=== PATIENT | female | born 1980 | race Caucasian/White ===

== ENCOUNTER → 2020-04-27 14:55 | Outpatient (CLI) | payer OTHER, SELFPAY ==
--- NOTE | ~2020-04-27 | MM_ITS ---
EXAMINATION: MM screening fernanda BI w floresita HISTORY: Screening mammogram TECHNIQUE: Craniocaudal and mediolateral oblique 3-D tomosynthesis images were obtained and synthetic 2-D images were generated. CAD analysis was submitted and interpreted. COMPARISON: 05/02/2015 bilateral diagnostic digital mammogram and limited left breast ultrasound exami nation BREAST PARENCHYMAL COMPOSITION: The breasts are heterogeneously dense, which may obscure small masses . FINDINGS: There is no evidence of suspicious mass, calcification, or architectural distortion to sugg est malignancy in either breast. There has been no suspicious interval change. IMPRESSION: 1. No mammographic evidence of malignancy. 2. Recommend routine screening mammography in one year. BI-RADS Category 1: Negative Reviewed, dictated and finalized at location A.
== END ==
PROVIDERS: Visit Provider Obstetrics & Gynecology
DX: Z12.31 Encounter for screening mammogram for malignant neoplasm of breast (principal)
CPT/HCPCS: 77063; 77067

== ENCOUNTER 2021-10-25 14:50 | Outpatient (CLI) | payer OTHER, SELFPAY ==
--- NOTE | ~2021-10-25 | US_ITS ---
EXAMINATION: US abdomen complete DATE: 10/25/2021 14:48 INDICATION: Epigastric abdominal pain. Left abdominal pain. TECHNIQUE: Multiple grayscale and Doppler ultrasound images of the abdomen were obtained. COMPARISON: CT abdomen and pelvis 02/10/2015 FINDINGS: The visualized portions of the head and body of the pancreas are normal. There is a 1.1 cm cyst in the liver. There is normal flow in main portal vein. The gallbladder is normal size. No galls tones or gallbladder wall thickening. There is no sonographic Rushing sign. The common duct is normal and measures 6 mm. The kidneys are normal in size. The spleen is normal in size. Abdominal aorta is n ormal in caliber. The visualized portion of inferior vena cava is normal. IMPRESSION: 1. No etiology for the patient's symptoms. Reviewed, dictated and finalized at location A.
[2021-10-25 15:01] LABS: Basophils Percent Auto 0.4 % (0.2-1.2); Eosinophils Absolute Auto 0.2 K/mm3 (0-0.3); Eosinophils Percent Auto 4.2 % (0-4.4); Hematocrit 33.4 % (37.0-47.0); Hemoglobin 11.1 g/dL (12.0-15.0); Immature Granulocyte Absolute 0.01 K/mm3 (0.00-0.031); Immature Granulocyte Percent A 0.2 % (0-0.5); Lymphocytes Absolute Auto 1.26 K/mm3 (0.9-3.2); Lymphocytes Percent Auto 26.6 % (18.3-44.2); Mean Corpuscular HGB Conc 33.2 g/dl (32-36); Mean Corpuscular Volume 87.2 fl (80-100); Mean Platelet Volume 9.9 fl (7.4-10.4); Monocytes Absolute Auto 0.3 K/mm3 (0.1-0.6); Monocytes Percent Auto 6.1 % (2.6-8.5); Neutrophils Percent Auto 62.5 % (45.5-73.1); Platelet Count Result 224 k/mm3 (150-375); Red Blood Count 3.83 M/mm3 (4.2-5.4); Red Cell Distribution Width 12.5 % (11.5-14.5); White Blood Count 4.7 K/mm3 (4.5-10.0)
[2021-10-25 15:10] LABS: Alanine Aminotransferase 12 U/L (4-35); Albumin Level 4.8 g/dL (3.5-5.1); Alkaline Phosphatase 63 U/L (38-126); Amylase 64 U/L (30-110); Anion Gap 10 mmol/L (8-16); Aspartate Amino Transferase 20 U/L (14-36); Bilirubin,Total 0.7 mg/dL (0.2-1.3); Blood Urea Nitrogen 10 mg/dL (7-17); Calcium 9.3 mg/dL (8.4-10.2); Carbon Dioxide 22 mmol/L (22-30); Chloride 106 mmol/L (98-107); Estimated Glomerular Filt Rate > 60; Glucose 90 mg/dL (65-110); Lipase 65 U/L (23-300); Potassium 3.9 mmol/L (3.4-5.0); Sodium 138 mmol/L (137-145)
== END 2021-10-25 14:51 | disposition home or self-care (01) ==
PROVIDERS: PCP Internal Medicine; Visit Provider Nurse Practitioner
DX: R10.9 Unspecified abdominal pain (principal)
CPT/HCPCS: 36415; 76700; 80053; 82150; 83690; 85025

== ENCOUNTER 2022-01-12 00:24 | Day surgery (SDC) | payer OTHER, SELFPAY ==
[2021-12-25 14:59] VITALS: BMI 29.3
--- NOTE | 2022-01-11 14:09 | P.HP_ITS ---
History of Present Illness History of Present Illness Consent: Risks, benefits, and alternatives have been discussed and questions answered. Patient agrees to proceed with procedure. Chief complaint: epigastric pain Narrative: Patti Avendano is a 41 year old female With epigastric pain for over6 weeks. Pain started suddenly and was severe for 6 days also had nausea and black loose stools for 2 days. Describes pain as a knot in her stomach. She denies any v omiting or fevers. She eventually followed up with her primary doctor. Nexium did not seem to help. She was having intermittent attacks which became more frequent after the holidays. At times they are daily. They can last for 20 or 30 minutes or even several hours. There is no pattern in terms of eating. She has had no weight loss. Blood work and abdominal Ultrasound were done which came back normal. She has hx of reflux disease, mostly diet controlled and takes Nexium or Tums high as needed. She reports indigestion,? Also bubble in chest associated with certain foods. Review of Systems Review of Systems: All systems reviewed & are unremarkable except as noted in HPI and below PMFSH Past Medical History Medical History Anxiety Hemorrhoids Iron deficiency anemia Migraine headache Vitamin D deficiency Surgical History Surgical History History of bilateral tubal ligation Previous section x3 Family History Family History Father Family history of diabetes mellitus in first degree relative, Onset Age: 50 Family history of coronary artery disease, Onset Age: 50 Patient's father is Family history of hypercholesterolemia Myocardial infarction Mother Patient's mother is in good health Social History Social History Smoking status: Never smoker Second hand tobacco smoke exposure: No Alcohol intake: current Drinks per week: 3 Alcohol use details: social Living arrangements: with family Spiritual care concerns: No Meds Home Medications and Allergies Home Medications Medication Instructions Recorded Confirmed Type multivitamin,rd-sxsz-qvyblzja 1 tablet PO DAILY 02/04/20 12/25/21 History (Complete Multivitamin tablet) esomeprazole magnesium 20 mg 20 mg PO TID 11/30/21 12/25/21 History capsule,delayed release (Nexium) cyclobenzaprine 10 mg tablet 10 mg PO BID PRN muscle spasm #20 12/25/21 12/25/21 Rx tabs Allergies Allergy/AdvReac Type Severity Reaction Status Date / Time No Known Allergies Allergy Verified 01/12/22 08:13 Exam Resp: Auscultation: clear to auscultation bilaterally Cardio: Rate: regular rate Rhythm: regular rhythm GI: GI Palp: Yes Soft to palpation and No Tenderness to palpation present (GI) Assessment and Plan Assessment and plan (1) Epigastric pain: Code(s): R10.13 - Epigastric pain Status: Acute Assessment and Plan: EGD with possible biopsy or dilatation or cautery.
[2022-01-12 08:14] VITALS: BP 119/81; PULSE 68; RESP 17; TEMP 36.5; O2SAT 100
[2022-01-12] MEDS: LACTATED RINGERS 1,000 ML 150 ML IV CONT (08:37)
--- NOTE | 2022-01-12 09:23 | P.PNAN_ITS ---
Anes - Initial Pre Proc Eval Procedure: Operation Date: 01/12/22 09:30 Proposed Procedures p Esophagogastroduodenoscopy - Urban Reynolds MD Date/Time: 01/12/22 09:23 Surgeon: Urban Reynolds MD Pre Op Diagnosis: epigastric pain Patient Data Age: 41 Gender: F Height: 1.7 m Weight: 84.5 kg Last Vital Signs Temp 97.7 F 01/12/22 08:14 Pulse 68 01/12/22 08:14 Resp 17 01/12/22 08:14 BP 119/81 01/12/22 08:14 Pulse Ox 100 01/12/22 08:14 O2 Del Method Room Air 01/12/22 08:14 Allergies Allergy/AdvReac Type Severity Reaction Status Date / Time No Known Allergies Allergy Verified 01/12/22 08:13 Home Medications Medication Instructions Recorded Confirmed Type multivitamin,yo-yysh-xkqstmut 1 tablet PO DAILY 02/04/20 12/25/21 History (Complete Multivitamin tablet) esomeprazole magnesium 20 mg 20 mg PO TID 11/30/21 12/25/21 History capsule,delayed release (Nexium) cyclobenzaprine 10 mg tablet 10 mg PO BID PRN muscle spasm #20 12/25/21 12/25/21 Rx tabs Patient hx anesthesia problems: none Family hx anesthesia problems: none Results Review: All pre-operative results and documents have been reviewed as part of the pre- operative evaluation. [facility] Past Medical History Medical History Anxiety Hemorrhoids Iron deficiency anemia Migraine headache Vitamin D deficiency Surgical History Surgical History History of bilateral tubal ligation Previous section x3 Family History Family History Father Family history of diabetes mellitus in first degree relative, Onset Ag e: 50 Family history of coronary artery disease, Onset Age: 50 Patient's father is Family history of hypercholesterolemia Myocardial infarction Mother Patient's mother is in good health Social History Social History Smoking status: Never smoker Second hand tobacco smoke exposure: No Alcohol intake: current Drinks per week: 3 Alcohol use details: social Living arrangements: with family Spiritual care concerns: No Anes - Eval Final PreProcedure Day of Procedure 01/12/22 09:23 Patient weight: normal Heart: regular rate and rhythm Lungs: clear to auscultation Airway: Mallampati scale class II Neurological: alert and oriented Last oral intake: >/= 8 hours ASA classification: II Emergent: no Anesthetic plan: proceed Anesthesia type and monitoring: general GIVS and standard monitoring Results Review: All pre-operative results and documents have been reviewed as part of the pre- operative evaluation. Informed Consent: The patient's anesthetic plan and its attendant risks and benefits were discussed with the patient/family/POA. Questions were solicited and answers provided to the satisfaction of the patient/family/POA.
[2022-01-12 09:36] VITALS: BP 91/52; PULSE 55; RESP 18; O2SAT 100
[2022-01-12 09:46] VITALS: BP 91/52; PULSE 60; RESP 19; O2SAT 100
[2022-01-12 09:56] VITALS: BP 106/61; PULSE 58; RESP 18; O2SAT 100
== END 2022-01-12 10:03 | disposition home or self-care (01) ==
PROVIDERS: PCP Internal Medicine; Visit Provider Internal Medicine Gastroenterology
PROC: 0DJ08ZZ Inspection of Upper Intestinal Tract, Via Natural or Artificial Opening Endoscopic (ICD-10-PCS; CPT 43235; principal; 2022-01-12 09:30)
DX: R10.13 Epigastric pain (principal); K31.7 Polyp of stomach and duodenum; D50.9 Iron deficiency anemia, unspecified; E55.9 Vitamin D deficiency, unspecified
CPT/HCPCS: 43239; 87081; 88305; J2704; J7120

== ENCOUNTER 2022-02-23 11:05 | Outpatient (CLI) | payer OTHER, SELFPAY ==
[2022-02-23 18:57] LABS: Basophils Percent Auto 0.3 % (0.2-1.2); Eosinophils Absolute Auto 0.3 K/mm3 (0-0.3); Eosinophils Percent Auto 4.8 % (0-4.4); Hematocrit 34.7 % (37.0-47.0); Hemoglobin 10.8 g/dL (12.0-15.0); Immature Granulocyte Absolute 0.02 K/mm3 (0.00-0.031); Immature Granulocyte Percent A 0.3 % (0-0.5); Lymphocytes Absolute Auto 1.02 K/mm3 (0.9-3.2); Lymphocytes Percent Auto 17.6 % (18.3-44.2); Mean Corpuscular HGB Conc 31.1 g/dl (32-36); Mean Corpuscular Volume 89.9 fl (80-100); Monocytes Absolute Auto 0.3 K/mm3 (0.1-0.6); Monocytes Percent Auto 4.7 % (2.6-8.5); Neutrophils Absolute Auto 4.2 K/mm3 (1.3-6.7); Neutrophils Percent Auto 72.3 % (45.5-73.1); Platelet Count Result 241 k/mm3 (150-375); Red Blood Count 3.86 M/mm3 (4.2-5.4); Red Cell Distribution Width 14.4 % (11.5-14.5); White Blood Count 5.8 K/mm3 (4.5-10.0)
[2022-02-23 19:27] LABS: Rheumatoid Factor < 8.6 IU/ML (<12)
[2022-02-23 19:37] LABS: Alanine Aminotransferase 12 U/L (6-35); Albumin Level 4.4 g/dL (3.5-5.1); Alkaline Phosphatase 73 U/L (38-126); Anion Gap 8 mmol/L (8-16); Aspartate Amino Transferase 18 U/L (14-36); Bilirubin,Total 0.4 mg/dL (0.2-1.3); Blood Urea Nitrogen 13 mg/dL (7-17); CRP < 0.5 mg/dL (<1.0); Calcium 8.8 mg/dL (8.4-10.2); Carbon Dioxide 24 mmol/L (22-30); Chloride 106 mmol/L (98-107); Cholesterol 215 mg/dL (0-200); Estimated Glomerular Filt Rate > 60; Glucose 88 mg/dL (65-110); HDL Direct 49 mg/dL; Potassium 3.9 mmol/L (3.4-5.0); Sodium 138 mmol/L (137-145); Triglycerides 102 mg/dL (<150)
[2022-02-23 19:47] LABS: LDL Cholesterol Direct 135 mg/dL
[2022-02-23 19:56] LABS: Iron 45 ug/dL (37-170)
[2022-02-23 20:06] LABS: Percent Iron Saturation 11 % (20-50)
[2022-02-23 20:10] LABS: Vitamin D 25 Hydroxy 39.3 ng/mL
[2022-02-23 20:30] LABS: Ferritin 5.68 ng/mL (6.24-137)
== END 2022-02-23 11:06 | disposition home or self-care (01) ==
LOC: ANHGOSHLAB 11:07
PROVIDERS: PCP Internal Medicine; Visit Provider Clinical Nurse Specialist
DX: E55.9 Vitamin D deficiency, unspecified (principal); M25.50 Pain in unspecified joint; D50.9 Iron deficiency anemia, unspecified; Z13.220 Encounter for screening for lipoid disorders; F41.9 Anxiety disorder, unspecified
CPT/HCPCS: 36415; 80053; 80061; 82306; 82728; 83540; 83550; 84443; 85025; 86038; 86140; 86430

== ENCOUNTER 2022-02-24 11:13 | Emergency (ER) | payer OTHER, SELFPAY ==
[2022-02-24 11:20] VITALS: BP 138/92; PULSE 82; RESP 18; TEMP 36.6; O2SAT 100
--- NOTE | 2022-02-24 11:45 | ED.GENADULT ---
HPI - General Adult General Chief complaint: Extremity Injury, Upper Stated complaint: Lt Elbow Swelling and Pain History of Present Illness HPI narrative: Patient is a 41-year-old female who presents to the [facility] care via POV for evaluation of worsening bursitis that began this morning. Patient reports she woke up yesterday with erythema and swelling to left elbow. She saw her PCP yesterday who diagnosed her with bursitis and recommended anti-inflammatories and compression therapy. She was advised by her PCP to have her elbow RE-evaluated if she noticed more erythema, pain, and swelling. Today she believes it is more erythematous prompting today's visit. She states, I am also concerned about it getting worse before I leave for vacation on Saturday . Recommended anti-inflammatories improve pain. Movement worsens pain. Patient reports she believes her pain is better from when she first experienced symptoms. Related Data Home Medications Medication Instructions Recorded Confirmed multivitamin,mf-lshg-[id number] 1 tablet PO DAILY 02/04/20 02/24/22 (Complete Multivitamin tablet) esomeprazole magnesium 20 mg 20 mg PO BID 11/30/21 02/24/22 capsule,delayed release (Nexium) Allergies Allergy/AdvReac Type Severity Reaction Status Date / Time No Known Allergies Allergy Verified 02/24/22 11:22 Review of Systems Review of Systems: Denies injury. Pertinent negatives fever, chills, sweats, malaise, poor p.o. intake, change in appetite, headache, LOC, dizziness, streaking, drainage, numbness, tingling, loss of sensation, foreign body sensation, deformity, sob, chest pain, and heart palpitations/murmurs. [facility] Past Medical History Medical History Anxiety Hemorrhoids Iron deficiency anemia Migraine headache Vitamin D deficiency Surgical History Surgical History History of bilateral tubal ligation Previous section x3 Family History Family History Father Family history of diabetes mellitus in first degree relative, Onset Age: 50 Family history of coronary artery disease, Onset Age: 50 Patient's father is Family history of hypercholesterolemia Myocardial infarction Mother Patient's mother is in good health Social History Social History Smoking status: Never smoker Second hand tobacco smoke exposure: No Alcohol intake: current Drinks per week: 3 Alcohol use details: social Spiritual care concerns: No Exam Narrative: GENERAL: Well-appearing, well-nourished, and in no acute distress. HEAD: Normocephalic, atraumatic. No facial swelling appreciated. EYES: PERRLA and EOMI. No evidence of erythema, swelling, or drainage. ENT: Nares clear, no rhinorrhea or epistaxis.Mucous membranes moist and pink. Uvula is midline without erythema and swelling. No evidence of obstruction, petechial rash, cobblestoning, lesions, ulcers, erythema, swelling, exudates, peritonsillar abscess, tenting, or drooling. Breath odor and voice normal. NECK: Supple. No Lymphadenopathy or nuchal rigidity appreciated. CHEST: Bilateral lung dave are clear to auscultation. No respiratory distress. No evidence of cough or pleuritic cp upon examination. HEART: Regular rate and rhythm. No murmur, gallop, or rub heard. EXTREMITIES: Normal range of motion. MILD ERYTHEMA AND MILD SWELLING NOTED TO L ELBOW WITH MILD PAIN WITH ALL ROM. SKIN: Warm, dry. No evidence of INJURY. MODERATE INDENTATIONS FROM ELBOW BRACE IS APPRECIATED. NEURO: No focal deficits. Alert and oriented x3. SPECIAL OBSERVATIONS: Smiling. Laughing. No evidence of discomfort Course Course Level of Care: Express Care Visit Vital Signs Vital signs: Vital Signs Temperature 97.9 F 02/24/22 11:20 Pulse
== END 2022-02-24 12:04 | disposition home or self-care (01) ==
PROVIDERS: Emergency Provider Nurse Practitioner Family; PCP Internal Medicine
DX: M70.22 Olecranon bursitis, left elbow (principal)
CPT/HCPCS: 99212; G0463

== ENCOUNTER → 2022-03-12 12:08 | Outpatient (CLI) | payer OTHER, SELFPAY ==
--- NOTE | ~2022-03-12 | MM_ITS ---
EXAMINATION: MM screening fernanda BI w floresita HISTORY: Screening TECHNIQUE: Craniocaudal and mediolateral oblique 3-D tomosynthesis images were obtained and synthetic 2-D images were generated. CAD analysis was submitted and interpreted. COMPARISON: Comparison to multiple prior studies sequentially, with oldest reviewed study dated 05/02. BREAST PARENCHYMAL COMPOSITION: There are scattered areas of fibroglandular density. FINDINGS: There is no evidence of suspicious mass, calcification, or architectural distortion to sugg est malignancy in either breast. There has been no suspicious interval change. IMPRESSION: 1. No mammographic evidence of malignancy. 2. Recommend routine screening mammography in one year. BI-RADS Category 1: Negative Reviewed, dictated and finalized at location A.
== END ==
PROVIDERS: PCP Internal Medicine; Visit Provider Obstetrics & Gynecology
DX: Z12.31 Encounter for screening mammogram for malignant neoplasm of breast (principal)
CPT/HCPCS: 77063; 77067

== ENCOUNTER 2022-09-06 08:04 | Emergency (ER) | payer OTHER, SELFPAY ==
--- NOTE | 2022-09-06 08:08 | ED.URI ---
HPI - URI/Sore Throat General Chief Complaint: Upper Respiratory Infection Stated Complaint: sinus congestion/drainage, sore throat,lt ear pain Time Seen by Provider: 09/06/22 08:06 Source: patient and RN notes reviewed Mode of arrival: ambulatory History of Present Illness HPI Narrative: 41-year-old female presents to urgent care with complaints of congestion, sinus pressure, pain that radiates to the left ear, postnasal drip, and head pressure for the last 7-8 days. Patient reports associated pain in the left side of her throat in the mornings attributes this to mouth breathing at night and postnasal drip. Patient denies any fevers, chills, chest pain, shortness of breath, or vomiting. 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 Patient has been taking NyQuil, DayQuil, Mucinex, and eating cough drops frequently with no relief. Related Data Home Medications Medication Instructions Recorded Confirmed multivitamin,vx-dywo-aqzrmmhw 1 tablet PO DAILY 02/04/20 09/06/22 (Complete Multivitamin tablet) Allergies Allergy/AdvReac Type Severity Reaction Status Date / Time No Known Allergies Allergy Verified 09/06/22 08:13 Review of Systems Review of Systems: CONSTITUTIONAL: Denies fever, chills, or sweats. EYES: Denies visual changes, redness, or discharge. ENT: Reports otalgia and sore throat CARDIOVASCULAR: Denies chest pain, palpitations, or edema. RESPIRATORY: Reports slight cough. GASTROINTESTINAL: Denies abdominal pain, nausea, vomiting, or diarrhea. GENITOURINARY: Denies dysuria or hematuria. SKIN: Denies rash or itching. MUSCULOSKELETAL: Reports upper, bilateral, back soreness I contributes this to sleeping well. NEUROLOGIC: Reports headache pressure PMFSH Past Medical History Medical History Anxiety Hemorrhoids Iron deficiency anemia Migraine headache Vitamin D deficiency Surgical History Surgical History History of bilateral tubal ligation Previous section x3 Family History Family History Father Family history of diabetes mellitus in first degree relative, Onset Age: 50 Family history of coronary artery disease, Onset Age: 50 Patient's father is Family history of hypercholesterolemia Myocardial infarction Mother Patient's mother is in good health Social History Social History Smoking status: Never smoker Second hand tobacco smoke exposure: No Alcohol intake: current Drinks per week: 3 Alcohol use details: social Living arrangements: with family Spiritual care concerns: No Comments At the time of my signature, I reviewed and agree with the nursing past medical, surgical, social, and family history. There is no relevant family history pertinent to the patient complaint. Exam Narrative: GENERAL: This is a well-nourished, well-developed patient, in no apparent distress. HEAD: normocephalic, atraumatic. EYES: PERRL. Sclera clear/white. Vision is grossly intact. EARS: External ears normal, auditory canals clear and without drainage, TMs normal without perforation. Hearing grossly intact. NOSE: Congestion THROAT: Mucous membranes dry, posterior pharynx erythema. No exudate noted NECK: Mild anterior cervical lymphadenopathy. CARDIOVASCULAR: Regular rate and rhythm without murmurs, gallops, or rubs. RESPIRATORY: Clear to auscultation. Breath sounds equal bilaterally. No wheezes, rales, or rhonchi. GASTROINTESTINAL: Abdomen soft, non-tender, nondistended. Bowel sounds are active. No hepato-splenomegaly, or palpable masses. No guarding. SKIN: warm, intact with no suspicious lesions or rash, good texture and turgor. NEURO: awak
[2022-09-06 08:15] VITALS: BP 116/88; PULSE 103; RESP 16; TEMP 37.2; O2SAT 100
== END 2022-09-06 08:31 | disposition home or self-care (01) ==
PROVIDERS: Emergency Provider Nurse Practitioner Family; PCP Internal Medicine
DX: J01.00 Acute maxillary sinusitis, unspecified (principal); D50.9 Iron deficiency anemia, unspecified
CPT/HCPCS: 99213; G0463

== ENCOUNTER → 2023-05-22 16:12 | Outpatient (CLI) | payer OTHER, SELFPAY ==
--- NOTE | ~2023-05-22 | MM_ITS ---
EXAMINATION: MM screening fernanda BI w floresita HISTORY: Screening mammogram TECHNIQUE: Craniocaudal and mediolateral oblique 3-D tomosynthesis images were obtained and synthetic 2-D images were generated. CAD analysis was submitted and interpreted. COMPARISON: 03/12/2022, 04/27/2020 bilateral screening mammogram examinations BREAST PARENCHYMAL COMPOSITION: There are scattered areas of fibroglandular density. FINDINGS: There is no evidence of suspicious mass, calcification, or architectural distortion to sugg est malignancy in either breast. There has been no suspicious interval change. IMPRESSION: 1. No mammographic evidence of malignancy. 2. Recommend routine screening mammography in one year. BI-RADS Category 1: Negative Reviewed, dictated and finalized at location A.
== END ==
PROVIDERS: PCP Obstetrics & Gynecology; Visit Provider Obstetrics & Gynecology
DX: Z12.31 Encounter for screening mammogram for malignant neoplasm of breast (principal)
CPT/HCPCS: 77063; 77067

== ENCOUNTER 2024-01-05 16:07 | Emergency (ER) | payer OTHER, SELFPAY ==
[2024-01-05 16:16] VITALS: BP 137/79; PULSE 81; RESP 18; TEMP 36.7; O2SAT 99
--- NOTE | 2024-01-05 16:51 | ED.GENADULT ---
HPI - General Adult General Chief complaint: Urogenital-Female Stated complaint: side pains Time Seen by Provider: 01/05/24 16:31 Source: patient and RN notes reviewed Mode of arrival: ambulatory Limitations: no limitations History of Present Illness HPI narrative: Patient presents today complaining of bilateral flank/mid back pain x3 days, left greater than right. Denies injury or trauma. Denies urinary symptoms, fever, cough, recent illness, shortness of breath. Reports some occasional radiation to the left lateral abdomen. She currently rates her pain 6/10, which increases with movement. She has tried ice, heat, and ibuprofen with little relief. Related Data Home Medications Medication Instructions Recorded Confirmed No Home Medications 01/05/24 01/05/24 Allergies Allergy/AdvReac Type Severity Reaction Status Date / Time No Known Allergies Allergy Verified 01/05/24 16:24 Review of Systems Review of Systems: CONSTITUTIONAL: Denies body aches, fever, chills, or sweats. EYES: Denies visual changes, redness, or discharge. ENT: Denies rhinorrhea, congestion, sore throat, or otalgia. CARDIOVASCULAR: Denies chest pain, palpitations, or edema. RESPIRATORY: Denies cough or dyspnea. GASTROINTESTINAL: Denies abdominal pain, nausea, vomiting, or diarrhea.+ bilateral flank pain GENITOURINARY: Denies dysuria or hematuria. SKIN: Denies rash, itching, or wounds. MUSCULOSKELETAL: Denies back pain, joint pain, or myalgia. NEUROLOGIC: Denies headache, numbness, tingling, or weakness. PSYCH: Denies depression or anxiety. PMFSH Past Medical History Medical History Anxiety Hemorrhoids Iron deficiency anemia Migraine headache Vitamin D deficiency Surgical History Surgical History History of bilateral tubal ligation Previous section x3 Family History Family History Father Family history of diabetes mellitus in first degree relative, Onset Age: 50 Family history of coronary artery disease, Onset Age: 50 Patient's father is Family history of hypercholesterolemia Myocardial infarction Mother Patient's mother is in good health Social History Social History Smoking status: Never smoker Second hand tobacco smoke exposure: No Alcohol intake: current Drinks per week: 3 Alcohol use details: social Substance use: never Lack of Transportation: No Lack of Food: Never True Current Housing: I Have Housing Concerned About Future Housing: No Difficulty Paying Gas/Electric Bills: No Difficulty Paying for Meds: No Currently Unemployed: No Education: Bachelor's Degree Living arrangements: with family Occupation/Education: occupation Gender identity (if verbalized by the patient): Female Sexual Orientation (if Verbalized by the Patient): Straight or Heterosexual Spiritual care concerns: No Comments At time of signature, I have reviewed and agree with nursing past medical, surgical, social and family history unless otherwise noted. Please see nursing chart for further information. There is no relevant family history pertinent to the presenting complaint Exam Narrative: GENERAL: Well-appearing, well-nourished, and in no acute distress. HEAD: Normocephalic, atraumatic. EYES: EOMI. No redness or drainage. Conjunctivae normal. ENT: Mucous membranes pink and moist. NECK: Normal AROM. CHEST: No respiratory distress. Clear to auscultation. HEART: Regular rate and rhythm. No murmur appreciated. Normal peripheral pulses. ABDOMEN: Soft, nontender, nondistended, normal active bowel sounds. MUSCULOSKELETAL: No bony tenderness of the spine. Bilateral tenderness of the thoracic paraspinal muscles, left greater than right. Distal sensation intact. C
== END 2024-01-05 16:50 | disposition short-term general hospital (02) ==
PROVIDERS: Emergency Provider Nurse Practitioner; PCP Internal Medicine
DX: R10.9 Unspecified abdominal pain (principal)
CPT/HCPCS: 81003; 99212; G0463

== ENCOUNTER 2024-01-05 17:03 | Emergency (ER) | payer OTHER, SELFPAY ==
--- NOTE | ~2024-01-05 | CT_ITS ---
EXAMINATION: CT abdomen pelvis w con DATE: 01/05/2024 17:59 INDICATION: Flank pain TECHNIQUE: Computed tomography (CT) of the abdomen and pelvis was performed with 100 cc Omnipaque 350 intravenous contrast. The dose-length product was 586.87 mGy-cm. Automated exposure control and iter ative reconstruction technique were employed. COMPARISON: CT dated 02/10/2015 FINDINGS: Lung bases unremarkable. Heart size normal. No significant pleural or pericardial effusion. No significant vascular abnormality. No lymphadenopathy. Gallbladder is contracted. Small fat-contai juan j umbilical hernia. Nonobstructive bowel gas pattern. No hydronephrosis. There is a cyst of the le ft hepatic lobe. The spleen, pancreas, adrenal glands and kidneys are unremarkable. Normal appendix. No free air or free fluid. No lymphadenopathy. Enlarged uterus. Mild endometrial thickening. There is a urachal remnant of the bladder. No significant bladder wall thickening. IMPRESSION: 1. No acute abdominal abnormality. Reviewed, dictated and finalized at location A.
--- NOTE | 2024-01-05 17:12 | ED.BACK ---
HPI - Back Pain/Injury General Chief Complaint: Back Pain/Injury Stated Complaint: b/l flank pain Time Seen by Provider: 01/05/24 17:11 History of Present Illness HPI Narrative: Patient is a 43-year-old female who presents to the emergency department this evening from an Urgent Care due to concern for bilateral flank pain. Patient denies any urinary symptoms and at the urgent care urinalysis was obtained and was completely normal. Patient admits that the left flank pain is worse than the right. She states that her pain is a 6/10 on the pain scale and that it has been going on for the past 3 days. Related Data Allergies Allergy/AdvReac Type Severity Reaction Status Date / Time No Known Allergies Allergy Verified 01/05/24 17:17 Review of Systems Review of Systems: All systems are reviewed and are negative unless stated otherwise in the HPI. [facility] Past Medical History Medical History Anxiety Hemorrhoids Iron deficiency anemia Migraine headache Vitamin D deficiency Surgical History Surgical History History of bilateral tubal ligation Previous section x3 Family History Family History Father Family history of diabetes mellitus in first degree relative, Onset Age: 50 Family history of coronary artery disease, Onset Age: 50 Patient's father is Family history of hypercholesterolemia Myocardial infarction Mother Patient's mother is in good health Social History Social History Smoking status: Never smoker Second hand tobacco smoke exposure: No Alcohol intake: current Drinks per week: 3 Alcohol use details: social Substance use: never Lack of Transportation: No Lack of Food: Never True Current Housing: I Have Housing Concerned About Future Housing: No Difficulty Paying Gas/Electric Bills: No Difficulty Paying for Meds: No Currently Unemployed: No Education: Bachelor's Degree Living arrangements: with family Occupation/Education: occupation Gender identity (if verbalized by the patient): Female Sexual Orientation (if Verbalized by the Patient): Straight or Heterosexual Spiritual care concerns: No Exam Narrative: General: Alert, awake, afebrile, in no acute distress. HEENT: PERRL, no rhinorrhea, no post nasal drip, oropharynx clear. Cardiovascular: Regular rate and rhythm, no murmurs, rubs or gallops, no peripheral edema. Respiratory: Clear to auscultation bilaterally, no tachypnea, no wheezing, no rhonchi, no rubs, no respiratory distress. Abdomen: Soft, nontender, nondistended, no rebound, no guarding, no peritoneal signs. Musculoskeletal: No joint swelling or deformity, normal muscle tone, a reducible tenderness to palpation along the left thoracic paraspinal region. Skin: No rashes or petechia, no signs of infection. Neurological: Alert and oriented to person, place, and time. Follows all commands. No focal deficits, speech is clear and fluent. Course Vital Signs Vital signs: Vital Signs Temperature 97.9 F 01/05/24 17:15 Pulse Rate 68 01/05/24 17:15 Respiratory Rate 16 01/05/24 17:15 Blood Pressure 137/88 01/05/24 17:15 Pulse Oximetry 98 01/05/24 17:15 Temperature 97.9 F 01/05/24 17:15 Pulse Rate 68 01/05/24 17:15 Respiratory Rate 16 01/05/24 17:15 Blood Pressure 137/88 01/05/24 17:15 Pulse Oximetry 98 01/05/24 17:15 MDM - Back Pain/Injury MDM Narrative Medical decision making narrative: The patient was evaluated by myself in the emergency department. History is obtained from patient who is an independent historian and physical exam was performed. External medical records were reviewed at this time. IV was established and pertinent tests were ordered. Patient was admi
[2024-01-05 17:15] VITALS: BP 137/88; PULSE 68; RESP 16; TEMP 36.6; O2SAT 98
[2024-01-05 17:33] LABS: Basophils Percent Auto 0.3 % (0.2-1.2); Eosinophils Absolute Auto 0.3 K/mm3 (0-0.3); Eosinophils Percent Auto 4.8 % (0-4.4); Hematocrit 30.9 % (37.0-47.0); Hemoglobin 9.7 g/dL (12.0-15.0); Immature Granulocyte Absolute 0.01 K/mm3 (0.00-0.031); Immature Granulocyte Percent A 0.2 % (0-0.5); Lymphocytes Absolute Auto 1.66 K/mm3 (0.9-3.2); Lymphocytes Percent Auto 28.3 % (18.3-44.2); Mean Corpuscular HGB Conc 31.4 g/dl (32-36); Mean Corpuscular Hemoglobin 26.5 pg (26-34); Mean Corpuscular Volume 84.4 fl (80-100); Mean Platelet Volume 10.3 fl (7.4-10.4); Monocytes Absolute Auto 0.3 K/mm3 (0.1-0.6); Monocytes Percent Auto 5.3 % (2.6-8.5); Neutrophils Absolute Auto 3.6 K/mm3 (1.3-6.7); Neutrophils Percent Auto 61.1 % (45.5-73.1); Platelet Count Result 263 k/mm3 (150-375); Red Blood Count 3.66 M/mm3 (4.2-5.4); Red Cell Distribution Width 13.7 % (11.5-14.5); White Blood Count 5.9 K/mm3 (4.5-10.0)
[2024-01-05] MEDS: SODIUM CHLORIDE 0.9% IV 1,000 ML 999 ML IV CONT (17:43)
[2024-01-05 17:45] LABS: Alanine Aminotransferase 14 U/L (6-35); Albumin Level 4.3 g/dL (3.5-5.1); Alkaline Phosphatase 64 U/L (38-126); Anion Gap 8 mmol/L (4-12); Aspartate Amino Transferase 21 U/L (14-36); Bilirubin,Total 0.4 mg/dL (0.2-1.3); Blood Urea Nitrogen 16 mg/dL (7-17); Calcium 8.8 mg/dL (8.4-10.2); Carbon Dioxide 22 mmol/L (22-30); Chloride 109 mmol/L (98-107); Estimated CRCL calculation 80 ml/min; Estimated Glomerular Filt Rate > 60; Glucose 100 mg/dL (65-110); Lipase 117 U/L (23-300); Potassium 3.5 mmol/L (3.4-5.0); Sodium 139 mmol/L (137-145)
[2024-01-05 17:47] LABS: Creatine Kinase 72 U/L (30-135)
[2024-01-05] MEDS: LIDOCAINE 5% PATCH 1 PATCH TRANSDERM (19:26)
== END 2024-01-05 19:30 | disposition home or self-care (01) ==
PROVIDERS: Emergency Provider Emergency Medicine; PCP Internal Medicine
DX: R10.9 Unspecified abdominal pain (principal); S29.012A Strain of muscle and tendon of back wall of thorax, initial encounter; F41.9 Anxiety disorder, unspecified; X58.XXXA Exposure to other specified factors, initial encounter
CPT/HCPCS: 36415; 74177; 80053; 81003; 82248; 82550; 83690; 85025; 96360; 99284; A9270; J7030; Q9967

== ENCOUNTER 2024-02-11 12:07 | Outpatient (CLI) | payer OTHER, SELFPAY ==
[2024-02-11 12:53] LABS: Basophils Percent Auto 0.7 % (0.2-1.2); Eosinophils Absolute Auto 0.3 K/mm3 (0-0.3); Eosinophils Percent Auto 6.5 % (0-4.4); Hematocrit 35.6 % (37.0-47.0); Hemoglobin 11.3 g/dL (12.0-15.0); Immature Granulocyte Absolute 0.01 K/mm3 (0.00-0.031); Immature Granulocyte Percent A 0.2 % (0-0.5); Lymphocytes Absolute Auto 1.15 K/mm3 (0.9-3.2); Lymphocytes Percent Auto 26.6 % (18.3-44.2); Mean Corpuscular HGB Conc 31.7 g/dl (32-36); Mean Corpuscular Volume 85.2 fl (80-100); Mean Platelet Volume 10.6 fl (7.4-10.4); Monocytes Absolute Auto 0.3 K/mm3 (0.1-0.6); Monocytes Percent Auto 6.9 % (2.6-8.5); Neutrophils Absolute Auto 2.6 K/mm3 (1.3-6.7); Neutrophils Percent Auto 59.1 % (45.5-73.1); Platelet Count Result 278 k/mm3 (150-375); Red Blood Count 4.18 M/mm3 (4.2-5.4); Red Cell Distribution Width 14.7 % (11.5-14.5); White Blood Count 4.3 K/mm3 (4.5-10.0)
[2024-02-11 14:08] LABS: Iron 177 ug/dL (37-170)
[2024-02-11 14:10] LABS: Alanine Aminotransferase 15 U/L (6-35); Albumin Level 4.9 g/dL (3.5-5.1); Alkaline Phosphatase 59 U/L (38-126); Anion Gap 10 mmol/L (4-12); Aspartate Amino Transferase 20 U/L (14-36); Bilirubin,Total 0.6 mg/dL (0.2-1.3); Blood Urea Nitrogen 18 mg/dL (7-17); Calcium 9.3 mg/dL (8.4-10.2); Carbon Dioxide 23 mmol/L (22-30); Chloride 105 mmol/L (98-107); Estimated Glomerular Filt Rate > 60; Glucose 82 mg/dL (65-110); Lactate Dehydrogenase 156 U/L (120-246); Potassium 3.8 mmol/L (3.4-5.0); Sodium 138 mmol/L (137-145)
[2024-02-11 14:23] LABS: Percent Iron Saturation 41 % (20-50)
[2024-02-11 15:16] LABS: Folic Acid 12.1 ng/mL (2.76->20); Vitamin B12 > 1000.0 pg/mL (239-931)
[2024-02-14 16:17] LABS: Methylmalonic Acid 92 nmol/L (55-335)
[2024-02-18 13:54] LABS: Soluble Transferrin Receptor 2.02 mg/L (0.76-1.76)
== END 2024-02-11 12:08 | disposition home or self-care (01) ==
LOC: ANHLAB 12:10
PROVIDERS: Nurse Practitioner Family; PCP Internal Medicine; Visit Provider Internal Medicine Hematology & Oncology
DX: D50.0 Iron deficiency anemia secondary to blood loss (chronic) (principal)
CPT/HCPCS: 36415; 80053; 82607; 82728; 82746; 83540; 83550; 83615; 83921; 84238; 85025

== ENCOUNTER 2024-05-13 08:08 | Outpatient (CLI) | payer OTHER, SELFPAY ==
[2024-05-13 08:49] LABS: Basophils Percent Auto 0.3 % (0.2-1.2); Eosinophils Absolute Auto 0.3 K/mm3 (0-0.3); Eosinophils Percent Auto 7.4 % (0-4.4); Hematocrit 34.2 % (37.0-47.0); Hemoglobin 10.9 g/dL (12.0-15.0); Immature Granulocyte Absolute 0.01 K/mm3 (0.00-0.031); Immature Granulocyte Percent A 0.3 % (0-0.5); Lymphocytes Percent Auto 30.2 % (18.3-44.2); Mean Corpuscular HGB Conc 31.9 g/dl (32-36); Mean Corpuscular Hemoglobin 27.9 pg (26-34); Mean Corpuscular Volume 87.7 fl (80-100); Mean Platelet Volume 9.9 fl (7.4-10.4); Monocytes Absolute Auto 0.2 K/mm3 (0.1-0.6); Monocytes Percent Auto 5.2 % (2.6-8.5); Neutrophils Absolute Auto 2.1 K/mm3 (1.3-6.7); Neutrophils Percent Auto 56.6 % (45.5-73.1); Platelet Count Result 267 k/mm3 (150-375); Red Cell Distribution Width 12.6 % (11.5-14.5); White Blood Count 3.6 K/mm3 (4.5-10.0)
[2024-05-13 11:42] LABS: Alanine Aminotransferase 11 U/L (6-35); Albumin Level 4.5 g/dL (3.5-5.1); Alkaline Phosphatase 57 U/L (38-126); Anion Gap 9 mmol/L (4-12); Aspartate Amino Transferase 19 U/L (14-36); Bilirubin,Total 0.4 mg/dL (0.2-1.3); Blood Urea Nitrogen 10 mg/dL (7-17); Calcium 9.2 mg/dL (8.4-10.2); Carbon Dioxide 25 mmol/L (22-30); Chloride 104 mmol/L (98-107); Estimated Glomerular Filt Rate > 60; Glucose 93 mg/dL (65-110); Lactate Dehydrogenase 151 U/L (120-246); Potassium 4.2 mmol/L (3.4-5.0); Sodium 138 mmol/L (137-145)
[2024-05-13 11:55] LABS: Iron 40 ug/dL (37-170)
[2024-05-13 12:06] LABS: Percent Iron Saturation 12 % (20-50)
[2024-05-13 12:33] LABS: Ferritin 6.66 ng/mL (6.24-137)
[2024-05-13 12:46] LABS: Folic Acid 8.4 ng/mL (2.76->20); Vitamin B12 > 1000.0 pg/mL (239-931)
[2024-05-18 11:49] LABS: Methylmalonic Acid 90 nmol/L (55-335)
[2024-05-20 07:13] LABS: Soluble Transferrin Receptor 1.48 mg/L (0.76-1.76)
== END 2024-05-13 08:09 | disposition home or self-care (01) ==
LOC: ANHLAB 08:22
PROVIDERS: PCP Internal Medicine; Visit Provider Internal Medicine Hematology & Oncology
DX: D50.0 Iron deficiency anemia secondary to blood loss (chronic) (principal)
CPT/HCPCS: 36415; 80053; 82607; 82728; 82746; 83540; 83550; 83615; 83921; 84238; 85025

== ENCOUNTER 2024-05-25 15:17 | Outpatient (CLI) | payer OTHER, SELFPAY ==
--- NOTE | ~2024-05-25 | MM_ITS ---
EXAMINATION: MM screening fernanda BI w floresita HISTORY: Screening TECHNIQUE: Craniocaudal and mediolateral oblique 3-D tomosynthesis images were obtained and synthetic 2-D images were generated. CAD analysis was submitted and interpreted. COMPARISON: Comparison to multiple prior studies sequentially, with oldest reviewed study dated 05/02. BREAST PARENCHYMAL COMPOSITION: Not dense: There are scattered areas of fibroglandular density. FINDINGS: There is no evidence of suspicious mass, calcification, or architectural distortion to sugg est malignancy in either breast. There has been no suspicious interval change. IMPRESSION: 1. No mammographic evidence of malignancy. 2. Recommend routine screening mammography in one year. BI-RADS Category 1: Negative Reviewed, dictated and finalized at location B.
== END 2024-05-25 15:18 | disposition home or self-care (01) ==
LOC: MICIMG 15:17
PROVIDERS: PCP Nurse Practitioner Family; Visit Provider Nurse Practitioner Family
DX: Z12.31 Encounter for screening mammogram for malignant neoplasm of breast (principal)
CPT/HCPCS: 77063; 77067

== ENCOUNTER 2024-05-30 10:50 | Outpatient (CLI) | payer OTHER, SELFPAY ==
--- NOTE | ~2024-05-30 | US_ITS ---
EXAMINATION: US pelvic complete w TV INDICATION: Menorrhagia Comparison:CT dated 01/05/2024 TECHNIQUE: Multiple transabdominal and endovaginal sonographic images of the pelvis performed. FINDINGS: The uterus measures 12.6 x 6 x 6 cm. There are multiple uterine fibroids, largest measuring 2.3 x 1.9 x 1.5 cm. There are multiple nabothian cysts. The endometrial complex measures 12 mm. The ovaries are not visualized. There is no free fluid in the pelvis. There are no abnormal masses seen on either side. IMPRESSION: 1. Enlarged uterus containing multiple fibroids. 2: Endometrial thickening measuring 12 mm. Reviewed, dictated and finalized at location B.
== END 2024-05-30 10:51 | disposition home or self-care (01) ==
PROVIDERS: PCP Nurse Practitioner Family; Visit Provider Nurse Practitioner Family
DX: N92.0 Excessive and frequent menstruation with regular cycle (principal); D25.9 Leiomyoma of uterus, unspecified
CPT/HCPCS: 76830; 76856

== ENCOUNTER 2025-01-12 02:00 | Day surgery (SDC) | payer OTHER, SELFPAY ==
[2025-01-06 09:19] VITALS: BMI 23.5
--- OUTSIDE RECORDS SUMMARY | 2025-01-12 02:04 | XMS_ITS | Clinical Summary ---
Author Organization [facility]ne [facility] Address [address] [place] [address] Care Team Providers Care Caisson Worker Name Role Phone Roberta Shelton Francisco GONZALEZ Primary Care Provider Allergies No known active allergies Medications lactobacillus combination no.4 (Probiotic) 3 billion cell Capsule Take by mouth. Activ e ferrous sulfate 325 mg (65 mg iron) tablet Take 325 mg by mouth daily. Active docusate sodium (STOOL SOFTENER ORAL) Take by mouth. Activ e CHOLECALCIFEROL , VITAMIN D3, ORAL Take by mouth. Activ e CYANOCOBALAMIN, VITAMIN B-12, INJECTION 1,000 mg by Injection route every 2 weeks. Active SEMAGLUTIDE SUBCUT Inject by subcutaneous injection. Active Gallifrey 5 mg Tablet Take 5 mg by mouth daily. Active Active Problems No known active problems Encounters Date Type Department Care Team Description 01/05/2025 External Device Data STL ABSTRACTION Provider, Abstract 12/30/2024 External Device Data ST[facility] ABSTRACTION Provider, Abstract 12/29/2024 External Device Data [facility] ABSTRACTION Provider, Abstract 10/28/2024 External Device Data [facility] ABSTRACTION Provider, Abstract 10/17/2024 External Device Data [facility] ABSTRACTION Provider, Abstract 10/16/2024 External Device Data ST[facility] ABSTRACTION Provider, Abstract 10/14/2024 External Device Data ST[facility] ABSTRACTION Provider, Abstract from Last 3 Months Family History Medical History Relation Name Comments No Known Problems Brother 1 No Known Problems Brother 2 No Known Problems Child 1 No Known Problems Child 2 No Known Problems Child 3 Heart Disease Father Hyperlipidemia Father No Known Problems Mother No Known Problems Sister 1 No Known Problems Sister 2 Relation Name Status Comments Brother 1 Alive Brother 2 Alive Child 1 Alive Child 2 Alive Child 3 Alive Father Mother Alive Sister 1 Alive Sister 2 Alive Social History Tobacco Use Types Packs/Day Years Used Date Smoking Tobacco: Never Smokeless Tobacco: Never Alcohol Use Standard Drinks/Week Comments Yes 0 (1 standard drink = 0.6 oz pur e alcohol) socially Comments Unknown Sex and Gender Information Value Date Recorded Sex Assigned at Not on file Legal Sex Female 11:39 AM CDT Gender Identity Not on file Sexual Orientation Not on file Last Filed Vital Signs Vital Sign Reading Time Taken Comments Blood Pressure 108/72 07/27/2024 3:49 PM BLAST FURNACE TENDER Pulse 68 07/27/2024 3:46 PM BLAST FURNACE TENDER Temperature 36.5 C (97.7 F) 07/27/2024 3:46 PM BLAST FURNACE TENDER Respiratory Rate 16 07/27/2024 3:46 PM BLAST FURNACE TENDER Oxygen Saturation 99% 07/27/2024 3:46 PM BLAST FURNACE TENDER Inhaled Oxygen Concentration - - Weight 72.9 kg (160 lb 12.8 oz) 07/27/2024 3:46 PM BLAST FURNACE TENDER Height 170.2 cm (5' 7) 02/11/2024 11:2 8 AM CDT Body Mass Index 25.18 02/11/2024 11:28 AM CDT Plan of Treatment Health Maintenance Due Date Last Done Comments Pre-Diabetes and Diabetes Screening 1979 DTAP/TDAP/TD VACCINES (1 - Tdap) 11/19/1998 HEPATITIS B VACCINES (1 of 3 - 19+ 3-dose series) 11/19/1998 HPV/Cotest (21-29) 11/19/2000 CERVICAL CANCER SCREENING 11/19/2009 HPV/Cotest (30-65) 11/19/2009 PAP SMEAR 11/19/2009 BREAST CANCER SCREENING 2019 INFLUENZA VACCINE (#1) 2024 COLORECTAL SCREENING 11/19/2024 Colorectal Cancer Screening 11/19/2024 FIT-DNA Q 3 years 11/19/2024 FIT/FOBT Q 1 year 11/19/2024 Flex Sig/CT Colonography Q 5 years 11/19/2024 HPV VACCINES Aged Out No longer eligi ble based on patient's age to complete this topic Insurance [employer] [facility] [id number] [place] [address] Care Teams Caisson Worker Relationship Specialty Start Date End Date Shelton Granados DO [address] [place] [address] PCP - General Internal Medicine 02/11/24
--- OUTSIDE RECORDS SUMMARY | 2025-01-12 02:04 | XMS_ITS | Clinical Summary ---
Author Organization [facility] Address [address] [place] [address] Care Team Providers Care Cooler Man Name Role Phone Shelton Granados DO Primary Care Provider [phone] Source Comments [facility],non-owned Affiliates and Associated Physician Practices is amultiple site organization consisting of ambulatory clinics and hospital sitesin [place], [place], [place] and [place]. This disclosure is being madepursuant to the Care Everywhere program and may not contain all information available regarding this patient. Last updated 18.[facility] Allergies Active Allergy Reactions Criticality Noted Date Comments Kdc:Edetic Acid+Lecithin+Soy beard Oil+Tretinoin Other Low 06/03/2017 Skin peels Tretinoin Other Low 06/03/2017 Skin peels Medications * Be aware that medications may not be up to date on this document. Alwaysverify current medications with the patient. dapsone (ACZONE) 5 % gel by Apply externally route. 7 Active adapalene (DIFFERIN) 0.1 % cream 7 Active spironolactone (ALDACTONE) 25 MG tablet 100 mg. 6 Active esomeprazole (NEXIUM) 40 MG capsule Take 40 mg by mouth Active Gibsonia-3 Fatty Acids (OMEGA 3 PO) Active Probiotic Product (PROBIOTIC DAILY PO) Active VITAMIN MIXTURE PO Zeal vitamin drink. 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 Other chest pain 06/03/2017 Raised antibody titer 12/03/2016 Other marine oil terminal superintendent (current) drug therapy 6 Other malaise 05/26/2015 Insomnia 05/16/2015 Chondrocostal junction syndrome 05/16/2015 Cervicalgia 04/21/2015 Other chronic pain 04/21/2015 Pain in joint 04/21/2015 Migraine without status migrainosus, not intract able 04/21/2015 Family History Medical History Relation Name Comments None Known Brother Heart Disease Father Status: Deceas ed Lupus Father None Known Mother Status: Alive Thyroid Disease Sister Relation Name Status Comments Brother Father Mother Sister Social History Tobacco Use Types Packs/Day Years Used Date Smoking Tobacco: Former Smokeless Tobacco: Never Alcohol Use Standard Drinks/Week Comments Yes 0 (1 standard drink = 0.6 oz pur e alcohol) Comments No Sex and Gender Information Value Date Recorded Sex Assigned at Not on file 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 Gender Identity Not on file Sexual Orientation Not on file Last Filed Vital Signs Vital Sign Reading Time Taken Comments Blood Pressure 120/70 01/20/2018 4:02 PM CDT Pulse 60 01/20/2018 4:02 PM CDT Temperature 36.8 C (98.3 F) 01/20/2018 4:02 PM CDT Respiratory Rate 16 06/04/2016 8:50 AM CDT Oxygen Saturation 98% 01/20/2018 4:02 PM CDT Inhaled Oxygen Concentration - - Weight 77.6 kg (171 lb) 01/20/2018 4:02 PM CDT Height 170.2 cm (5' 7) 01/20/2018 4:02 PM CDT Body Mass Index 26.78 01/20/2018 4:02 PM CDT Plan of Treatment Health Maintenance Due Date Last Done Comments COLOGUARD (AGES 45-75) - COL ON CA SCREENING 1979 COLON MONITORING 1979 COLONOSCOPY - COLON CA SCREENING 1979 CT COLONOGRAPHY - COLON CA SCREENING 1979 Colorectal Cancer Screening 1979 FIT - COLON CA SCREENING 1979 FLEX SIG - COLON CA SCREENING 1979 LIPID TESTING 1979 MAMMOGRAM 1979 HIV SCREENING 11/19/1994 HEPATITIS C SCREENING 11/15/1997 DTAP/TDAP/TD VACCINES (1 - Tdap) 11/19/1998 HEPATITIS B VACCINE (1 of 3 - 19+ 3-dose series) 11/19/1998 COVID-19 VACCINE ( - 2023-2 5 season) 2024 DEPRESSION SCREENING 08/12/2024 INFLUENZA VACCINE (Season Ended) 2025 ZOSTER VACCINE (1 of 2) 11/19/2029 HIB VACCINE Aged Out No longer eligi ble based on patient's age to complete this topic HPV VACCINE Aged Out No longer eligi ble based on patient's age to complete this topic MENINGOCOCCAL (Group B) VACC INE SHARED DECISION-MAKING Aged Out No longer eligibl e based on patient's age to complete this topic MENINGOCOCCAL GROUPS A/C/Y/W VACCINE Aged Out No longer eligible b ased on patient's age to complete this topic PNEUMOCOCCAL VACCINE Aged Out No long er eligible based on patient's age to complete this topic Insurance [address] [place], [place] [id number] [place] [address] [facility] Care Teams Cooler Man Relationship Specialty Start Date End Date Shelton Granados DO PCP - General 04/21/15
--- OUTSIDE RECORDS SUMMARY | 2025-01-12 02:04 | XMS_ITS | Clinical Summary ---
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
[2025-01-12 06:48] VITALS: BP 126/96; PULSE 74; RESP 16; TEMP 36.1; O2SAT 100; BMI 23.6
--- NOTE | 2025-01-12 07:00 | WPDANESEPPF ---
Anes - Initial Pre Proc Eval Procedure: Operation Date: 01/12/25 08:00 Proposed Procedures p Screening Colonoscopy - Dakotah Paige MD Date/Time: 01/12/25 07:00 Surgeon: Dakotah Paige MD Pre Op Diagnosis: Encounter for screening for malignant neoplasm of Patient Data Age: 44 Gender: F Height: 1.7 m Weight: 68.6 kg Last Vital Signs Temp 36.1 C L 01/12/25 06:48 Pulse 74 01/12/25 06:48 Resp 16 01/12/25 06:48 BP 126/96 H 01/12/25 06:48 Pulse Ox 100 01/12/25 06:48 O2 Del Method Room Air 01/12/25 06:48 Allergies Allergy/AdvReac Type Severity Reaction Status Date / Time No Known Allergies Allergy Verified 01/12/25 06:47 Home Medications ?Medication ?Instructions ?Recorded ?Confirmed ?Type cholecalciferol (vitamin D3) 1,250 1,250 mcg PO WEEKLY #8 caps 01/15/24 01/06/25 Rx mcg (50,000 unit) capsule ferrous sulfate 325 mg (65 mg 325 mg PO DAILY 01/15/24 01/12/25 History iron) tablet (FeroSul) norethindrone acetate 5 mg tablet 5 mg PO DAILY 07/08/24 01/06/25 History (Gallifrey) Patient hx anesthesia problems: none Family hx anesthesia problems: none Results Review: All pre-operative results and documents have been reviewed as part of the pre-operative evaluation. ON LICENSE OF [facility] Past Medical History Medical History (Updated 01/11/25 @ 14:43 by Fabrice Bob DO) Fibromyalgia GERD (gastroesophageal reflux disease) Hemorrhoids Anxiety Migraine headache Vitamin D deficiency Iron deficiency anemia Surgical History Surgical History History of bilateral tubal ligation Previous section x3 Family History Family History Father Family history of diabetes mellitus in first degree relative, Onset Age: 50 Family history of coronary artery disease, Onset Age: 50 Patient's father is Family history of hypercholesterolemia Myocardial infarction Mother Patient's mother is in good health Social History Social History (Reviewed 05/25/24 @ 14:33 by Maranda Forman [facility]) Smoking status: Never smoker Second hand tobacco smoke exposure: No Alcohol intake: current Drinks per week: 3 Alcohol use details: social Substance use: never Substance use type: does not use Lack of Transportation: No Lack of Food: Never True Current Housing: I Have Housing Concerned About Future Housing: No Difficulty Paying Gas/Electric Bills: No Difficulty Paying for Meds: No Currently Unemployed: No Education: Bachelor's Degree Living arrangements: with family Occupation/Education: occupation Gender identity (if verbalized by the patient): Female Sexual Orientation (if Verbalized by the Patient): Straight or Heterosexual Spiritual care concerns: No Anes - Eval Final PreProcedure Day of Procedure 01/12/25 07:00 Patient weight: normal Heart: regular rate and rhythm Lungs: clear to auscultation and normal air movement Airway: Mallampati scale class II Neurological: alert and oriented Last oral intake: >/= 8 hours ASA classification: II Emergent: no Anesthetic plan: proceed Anesthesia type and monitoring: general GIVS and standard monitoring Results Review: All pre-operative results and documents have been reviewed as part of the pre-operative evaluation. Informed Consent: The patient's anesthetic plan and its attendant risks and benefits were discussed with the patient/family/POA. Questions were solicited and answers provided to the satisfaction of the patient/family/POA.
[2025-01-12] MEDS: LACTATED RINGERS 1,000 ML 150 ML IV CONT (07:01)
--- NOTE | 2025-01-12 07:56 | P.HP_ITS ---
History of Present Illness History of Present Illness Consent: Risks, benefits, and alternatives have been discussed and questions answered. Patient agrees to proceed with procedure. Chief complaint: Encounter for screening for malignant neoplasm of Narrative: Patti Avendano is a 44 year old female here for first screening colonoscopy Review of Systems Review of Systems: All systems reviewed & are unremarkable except as noted in HPI and below PMFSH Past Medical History Medical History (Updated 01/11/25 @ 14:43 by Fabrice Bob DO) Fibromyalgia GERD (gastroesophageal reflux disease) Hemorrhoids Anxiety Migraine headache Vitamin D deficiency Iron deficiency anemia Surgical History Surgical History History of bilateral tubal ligation Previous section x3 Family History Family History (Reviewed 05/25/24 @ 14:33 by Maranda Forman [facility]) Father Family history of diabetes mellitus in first degree relative, Onset Age: 50 Family history of coronary artery disease, Onset Age: 50 Patient's father is Family history of hypercholesterolemia Myocardial infarction Mother Patient's mother is in good health Social History Social History (Reviewed 05/25/24 @ 14:33 by Maranda Forman [facility]) Smoking status: Never smoker Second hand tobacco smoke exposure: No Alcohol intake: current Drinks per week: 3 Alcohol use details: social Substance use: never Substance use type: does not use Lack of Transportation: No Lack of Food: Never True Current Housing: I Have Housing Concerned About Future Housing: No Difficulty Paying Gas/Electric Bills: No Difficulty Paying for Meds: No Currently Unemployed: No Education: Bachelor's Degree Living arrangements: with family Occupation/Education: occupation Gender identity (if verbalized by the patient): Female Sexual Orientation (if Verbalized by the Patient): Straight or Heterosexual Spiritual care concerns: No Meds Home Medications and Allergies Home Medications ?Medication ?Instructions ?Recorded ?Confirmed ?Type cholecalciferol (vitamin D3) 1,250 1,250 mcg PO WEEKLY #8 caps 01/15/24 01/06/25 Rx mcg (50,000 unit) capsule ferrous sulfate 325 mg (65 mg 325 mg PO DAILY 01/15/24 01/12/25 History iron) tablet (FeroSul) norethindrone acetate 5 mg tablet 5 mg PO DAILY 07/08/24 01/06/25 History Jayde) Allergies Allergy/AdvReac Type Severity Reaction Status Date / Time No Known Allergies Allergy Verified 01/12/25 06:47 Vital Signs Vital Signs - 24 hr 01/12/25 06:48 Temperature 96.9 F L Pulse Rate 74 Respiratory Rate 16 Blood Pressure 126/96 H Pulse Oximetry 100 Oxygen Delivery Room Air Exam Const: General: comfortable and no acute distress HENMT: Face/Nose/Sinus: Normal nares present Eyes: General: appearance normal, both eyes and all related structures Neck: Neck: no JVD Resp: Auscultation: clear to auscultation bilaterally Cardio: Rate: regular rate Rhythm: regular rhythm GI: Inspection: non-distended GI Palp: Yes Soft to palpation Skin: General skin exam: normal color Neuro: General: gait normal Speech: normal speech Extrem: General: normal to inspection Psych: Mental Status: mental status grossly normal Assessment and Plan Assessment and plan (1) Colon cancer screening: Code(s): Z12.11 - Encounter for screening for malignant neoplasm of colon Status: Acute Assessment and Plan: colonoscopy
[2025-01-12 08:08] VITALS: BP 88/49; PULSE 58; RESP 19; O2SAT 100
[2025-01-12 08:11] LABS: BEDSIDEPREGUCG Negative (Negative)
[2025-01-12 08:18] VITALS: BP 89/48; PULSE 58; RESP 20; O2SAT 100
[2025-01-12 08:28] VITALS: BP 101/64; PULSE 58; RESP 15; O2SAT 100
== END 2025-01-12 08:42 | disposition home or self-care (01) ==
PROVIDERS: PCP Nurse Practitioner Family; Referring Provider Nurse Practitioner; Visit Provider Internal Medicine Gastroenterology
PROC: 0DJD8ZZ Inspection of Lower Intestinal Tract, Via Natural or Artificial Opening Endoscopic (ICD-10-PCS; CPT 45378; principal; 2025-01-12 08:00)
DX: Z12.11 Encounter for screening for malignant neoplasm of colon (principal); K64.8 Other hemorrhoids; M79.7 Fibromyalgia; K21.9 Gastro-esophageal reflux disease without esophagitis; F41.9 Anxiety disorder, unspecified; E55.9 Vitamin D deficiency, unspecified; D50.9 Iron deficiency anemia, unspecified; Z98.890 Other specified postprocedural states; Z98.51 Tubal ligation status; Z82.49 Family history of ischemic heart disease and other diseases of the circulatory system
CPT/HCPCS: 45378; J2704; J7120

== ENCOUNTER 2025-01-18 08:24 | Outpatient (CLI) | payer OTHER, SELFPAY ==
--- OUTSIDE RECORDS SUMMARY | 2025-01-18 08:47 | XMS_ITS | Clinical Summary ---
Author Organization [facility] Address [address] [place] [address] Care Team Providers Care Assembly Room Supervisor Name Role Phone Shelton Granados DO Primary Care Provider [phone]- [phone] Source Comments [facility],non-owned Affiliates and Associated Physician Practices is amultiple site organization consisting of ambulatory clinics and hospital sitesin [place], [place], [place] and [place]. This disclosure is being madepursuant to the Care Everywhere program and may not contain all information available regarding this patient. 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
--- OUTSIDE RECORDS SUMMARY | 2025-01-18 08:47 | XMS_ITS | Clinical Summary ---
Author Organization [facility] Address [address] [place] [address] Phone Care Team Providers Care County Records Management Officer Name Role Phone Unavailable Primary Care Provider Unavailabl e Social History Tobacco Use Types Packs/Day Years Used Date Smoking Tobacco: Never Assessed Comments Unknown Sex and Gender Information Value Date Recorded Sex Assigned at Not on file Legal Sex Female 7:52 PM INFANT NANNY Gender Identity Not on file Sexual Orientation Not on file Plan of Treatment Not on file
--- OUTSIDE RECORDS SUMMARY | 2025-01-18 08:47 | XMS_ITS | Clinical Summary ---
[facility] Address [address] [place] [address] Care Team Providers Care Legislative Analyst Name Role Phone Roberta Shelton Francisco GONZALEZ [...] Tablet Take 5 mg by mouth daily. 4 Active Active Problems No known active problems [...] Comments Blood Pressure 108/72 07/27/2024 3:49 PM DUCK OPERATOR Pulse 68 07/27/2024 3:46 PM DUCK OPERATOR Temperature 36.5 C (97.7 F) 07/27/2024 3:46 PM DUCK OPERATOR Respiratory Rate 16 07/27/2024 3:46 PM DUCK OPERATOR Oxygen Saturation 99% 07/27/2024 3:46 PM DUCK OPERATOR Inhaled Oxygen Concentration - - Weight 72.9 kg (160 lb 12.8 oz) 07/27/2024 3:46 PM DUCK OPERATOR Height 170.2 cm (5' 7) 02/11/2024 11:2 [...] to complete this topic [place] [address] [facility] [id number] [facility] Care Teams Legislative Analyst Relationship Specialty Start Date End Date Shelton Granados DO [address] [phone] PCP - General Internal Medicine 02/11/24
[2025-01-18 09:06] LABS: Hematocrit 38.3 % (37.0-47.0); Hemoglobin 12.5 g/dL (12.0-15.0)
== END 2025-01-18 08:25 | disposition home or self-care (01) ==
LOC: ANHSURGERY 08:27
PROVIDERS: PCP Internal Medicine; Visit Provider Obstetrics & Gynecology
DX: Z01.818 Encounter for other preprocedural examination (principal); N92.0 Excessive and frequent menstruation with regular cycle
CPT/HCPCS: 36415; 85014; 85018; 86850; 86900; 86901

== ENCOUNTER 2025-01-20 08:34 | Outpatient (CLI) | payer OTHER, SELFPAY ==
--- OUTSIDE RECORDS SUMMARY | 2025-01-20 08:52 | XMS_ITS | Clinical Summary ---
Author Organization [facility] Address [address] [place] [address] Care Team Providers Care Sponge Clipper Name Role Phone Roberta Shelton Francisco GONZALEZ [...] Comments Blood Pressure 108/72 07/27/2024 3:49 PM DATA OPERATIONS MANAGER Pulse 68 07/27/2024 3:46 PM DATA OPERATIONS MANAGER Temperature 36.5 C (97.7 F) 07/27/2024 3:46 PM DATA OPERATIONS MANAGER Respiratory Rate 16 07/27/2024 3:46 PM DATA OPERATIONS MANAGER Oxygen Saturation 99% 07/27/2024 3:46 PM DATA OPERATIONS MANAGER Inhaled Oxygen Concentration - - Weight 72.9 kg (160 lb 12.8 oz) 07/27/2024 3:46 PM DATA OPERATIONS MANAGER Height 170.2 cm (5' 7) 02/11/2024 11:2 [...] to complete this topic [place] [address] [facility] [id number] [facility] Care Teams Sponge Clipper Relationship Specialty Start Date End Date Shelton Granados DO [address] [phone] PCP - General Internal Medicine 02/11/24
--- OUTSIDE RECORDS SUMMARY | 2025-01-20 08:53 | XMS_ITS | Clinical Summary ---
Author Organization [facility] [employer] Address [address] [place] [address] Care Team Providers Care Auditing Clerk Name Role Phone Shelton Granados DO Primary Care Provider [phone] Source Comments [facility] [employer],non-owned Affiliates and Associated Physician Practices is amultiple site organization consisting of ambulatory clinics and hospital sitesin [place], [place], [place] and [place]. This disclosure is being madepursuant to the Care Everywhere program and may not contain all information available regarding this patient. 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
[2025-01-20 12:29] LABS: Basophils Percent Auto 0.5 % (0.2-1.2); Eosinophils Absolute Auto 0.4 K/mm3 (0-0.3); Eosinophils Percent Auto 7.3 % (0-4.4); Hematocrit 39.9 % (37.0-47.0); Hemoglobin 12.7 g/dL (12.0-15.0); Immature Granulocyte Absolute 0.03 K/mm3 (0.00-0.031); Immature Granulocyte Percent A 0.5 % (0-0.5); Lymphocytes Percent Auto 23.6 % (18.3-44.2); Mean Corpuscular HGB Conc 31.8 g/dl (32-36); Mean Corpuscular Hemoglobin 30.4 pg (26-34); Mean Corpuscular Volume 95.5 fl (80-100); Mean Platelet Volume 10.3 fl (7.4-10.4); Monocytes Absolute Auto 0.3 K/mm3 (0.1-0.6); Monocytes Percent Auto 5.8 % (2.6-8.5); Neutrophils Absolute Auto 3.4 K/mm3 (1.3-6.7); Neutrophils Percent Auto 62.3 % (45.5-73.1); Platelet Count Result 242 k/mm3 (150-375); Red Blood Count 4.18 M/mm3 (4.2-5.4); Red Cell Distribution Width 12.3 % (11.5-14.5); White Blood Count 5.5 K/mm3 (4.5-10.0)
[2025-01-20 12:50] LABS: Alanine Aminotransferase 15 U/L (6-35); Albumin Level 4.3 g/dL (3.5-5.1); Alkaline Phosphatase 54 U/L (38-126); Anion Gap 8 mmol/L (4-12); Aspartate Amino Transferase 41 U/L (14-36); Bilirubin,Total 0.5 mg/dL (0.2-1.3); Blood Urea Nitrogen 10 mg/dL (7-17); Calcium 9.7 mg/dL (8.4-10.2); Carbon Dioxide 26 mmol/L (22-30); Chloride 106 mmol/L (98-107); Cholesterol 175 mg/dL (0-200); Estimated Glomerular Filt Rate > 60; Glucose 86 mg/dL (65-110); HDL Direct 47 mg/dL; Potassium 4.3 mmol/L (3.4-5.0); Sodium 140 mmol/L (137-145); Total Protein 7.4 g/dL (6.3-8.2); Triglycerides 43 mg/dL (<150)
[2025-01-20 13:20] LABS: LDL Cholesterol Direct 100 mg/dL
[2025-01-20 13:37] LABS: Vitamin D 25 Hydroxy 54.6 ng/mL
== END 2025-01-20 08:35 | disposition home or self-care (01) ==
LOC: ANHGOSHLAB 08:35
PROVIDERS: PCP Nurse Practitioner; Visit Provider Nurse Practitioner
DX: E78.5 Hyperlipidemia, unspecified (principal); E55.9 Vitamin D deficiency, unspecified; D50.9 Iron deficiency anemia, unspecified
CPT/HCPCS: 36415; 80053; 80061; 82306; 85025

== ENCOUNTER 2025-01-22 01:55 | Day surgery (SDC) | payer OTHER, SELFPAY ==
--- NOTE | 2025-01-14 10:09 | SUR.PREOP ---
Report to the Outpatient Waiting Room, entrance under the green pavilion located off [facility], at time _0600_ on date _01/22/25_. Planned Procedure Time: _0730_.? Time changes happen often and if your time is changed the preop area will call you the afternoon before. - You and your visitor will be asked to self-screen and do not enter if you have any COVID symptoms. Please call surgeon if you need to reschedule. - A mask is optional within the hospital at this time. Patients may have clear liquids (water, carbonated beverages, clear teas, apple juice) until 3 hours (0430) prior to surgery with a maximum of 20 ounces. - No food from midnight until time of surgery and no smoking, or chewing tobacco (or any form of nicotine). No chewing gum, candy or mints. Take only the following medications with a SIP of water on the morning of surgery: _patient already instructed on medication per Dr. Shelby_ DO NOT STOP ANY OF YOUR OTHER PRESCRIPTION MEDICATIONS PRIOR TO SURGERY EXCEPT THE FOLLOWING Hold all vitamins and supplements for 3 days per anesthesiologist. Medications to discontinue per physician _NA_ Date to take last dose_NA_ Please no make-up, nail chinese, hairspray, perfume, deodorant, or body powder the day of surgery.? No jewelry (including any body piercings) or valuables the day of surgery, leave them at home.? Please take a shower or bath the night before, or the morning of, surgery with an antibacterial soap.? Wear comfortable, loose fitting clothing.? - Jewelry must be removed prior to entering the operating room.? Rings and piercings that are not removed may be cut off. - The hospital will not accept responsibility for valuables.? - Please leave all valuables, including medications, at home the day of surgery. If you are going home after surgery, a licensed driver utility worker must drive you home.? - NO public transportation without another adult if you receive anesthesia. - We recommend that an adult stay with you for 24 hours following discharge. - We also recommend that you do not drive, make important decision, drink alcoholic beverages, or take any drugs that were not prescribed by your health care provider for at least 24 hours after your discharge time. Follow any additional instructions given to you from your surgeon. Telephone instructions given to _Patti_and asked if any additional questions and then verbalized understanding. Patient advised to call surgeon office or pre surgery nurse liaison [phone] if any additional questions.
[2025-01-14 10:28] VITALS: BMI 23.5
[2025-01-22] VITALS (12 sets, daily range): BP systolic 104–127; BP diastolic 63–80; PULSE 51–73; RESP 12–19; TEMP 36.4–36.9; O2SAT 100; BMI 24.0
--- OUTSIDE RECORDS SUMMARY | 2025-01-22 02:00 | XMS_ITS | Clinical Summary ---
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
--- OUTSIDE RECORDS SUMMARY | 2025-01-22 02:00 | XMS_ITS | Clinical Summary ---
Author Organization [facility] [employer] Address [address] [place] [address] Care Team Providers Care Bow Maker Name Role Phone Shelton Granados DO Primary Care Provider Source Comments [facility] [employer],non-owned Affiliates and Associated Physician Practices is amultiple site organization consisting of ambulatory clinics and hospital sitesin [place], [place], [place] and [place]. This disclosure is being madepursuant to the Care Everywhere program and may not contain all information available regarding this patient. 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
--- OUTSIDE RECORDS SUMMARY | 2025-01-22 02:00 | XMS_ITS | Clinical Summary ---
[facility] Organization [facility] Address [address] [place] [address] Care Team Providers Care Director Alumni Relations Name Role Phone Roberta Shelton Francisco GONZALEZ [...] Comments Blood Pressure 108/72 07/27/2024 3:49 PM STEEL INSPECTOR Pulse 68 07/27/2024 3:46 PM STEEL INSPECTOR Temperature 36.5 C (97.7 F) 07/27/2024 3:46 PM STEEL INSPECTOR Respiratory Rate 16 07/27/2024 3:46 PM STEEL INSPECTOR Oxygen Saturation 99% 07/27/2024 3:46 PM STEEL INSPECTOR Inhaled Oxygen Concentration - - Weight 72.9 kg (160 lb 12.8 oz) 07/27/2024 3:46 PM STEEL INSPECTOR Height 170.2 cm (5' 7) 02/11/2024 11:2 [...] to complete this topic [place] [address] [facility] [id number] [facility] Care Teams Director Alumni Relations Relationship Specialty Start Date End Date Shelton Granados DO [address] [phone] PCP - General Internal Medicine 02/11/24
[2025-01-22] MEDS: KETOROLAC 15 MG/ML VIAL (*BKC) IV PUSH (06:42)
[2025-01-22] MEDS: ACETAMINOPHEN 500 MG TABLET 1000 MG PO (06:42)
--- NOTE | 2025-01-22 06:45 | WPDANESEPPF ---
Anes - Initial Pre Proc Eval Procedure: Operation Date: 01/22/25 07:30 Proposed Procedures p Robotic Assisted Laparoscopic Total Vaginal Hysterectomy with Bilateral Salpingectomy - Osman Shelby MD Date/Time: 01/22/25 06:45 Surgeon: Osman Shelby MD Pre Op Diagnosis: menorrhagia Patient Data Age: 44 Gender: F Height: 1.7 m Weight: 68.18 kg Allergies Allergy/AdvReac Type Severity Reaction Status Date / Time No Known Allergies Allergy Verified 01/20/25 08:03 Home Medications ?Medication ?Instructions ?Recorded ?Confirmed ?Type norethindrone acetate 5 mg tablet 5 mg PO DAILY 07/08/24 01/20/25 History ([place]) semaglutide 0.5 mg/0.1 mL mg subcut 01/20/25 01/20/25 History subcutaneous syringe Patient hx anesthesia problems: none Family hx anesthesia problems: none Results Review: All pre-operative results and documents have been reviewed as part of the pre-operative evaluation. [facility] Past Medical History Medical History Fibromyalgia GERD (gastroesophageal reflux disease) Hemorrhoids Anxiety Migraine headache Vitamin D deficiency Iron deficiency anemia Surgical History Surgical History H/O colonoscopy History of bilateral tubal ligation Previous section x3 Family History Family History Father Family history of diabetes mellitus in first degree relative, Onset Age: 50 Family history of coronary artery disease, Onset Age: 50 Patient's father is Family history of hypercholesterolemia Myocardial infarction Mother Patient's mother is in good health Social History Social History Smoking status: Never smoker Second hand tobacco smoke exposure: No Alcohol intake: current Drinks per week: 3 Alcohol use details: social Substance use: never Substance use type: does not use Lack of Transportation: No Lack of Food: Never True Current Housing: I Have Housing Concerned About Future Housing: No Difficulty Paying Gas/Electric Bills: No Difficulty Paying for Meds: No Currently Unemployed: No Education: Bachelor's Degree Living arrangements: with family Additional living arrangements comments: spouse and children Occupation/Education: occupation Gender identity (if verbalized by the patient): Female Sexual Orientation (if Verbalized by the Patient): Straight or Heterosexual Spiritual care concerns: No Anes - Eval Final PreProcedure Day of Procedure 01/22/25 06:45 Patient weight: normal Heart: regular rate and rhythm Lungs: clear to auscultation Airway: Mallampati scale class II Neurological: alert and oriented Last oral intake: >/= 8 hours ASA classification: II Emergent: no Anesthetic plan: proceed Anesthesia type and monitoring: general GIVS and standard monitoring Results Review: All pre-operative results and documents have been reviewed as part of the pre-operative evaluation. Informed Consent: The patient's anesthetic plan and its attendant risks and benefits were discussed with the patient/family/POA. Questions were solicited and answers provided to the satisfaction of the patient/family/POA.
[2025-01-22 07:20] LABS: BEDSIDEPREGUCG Negative (Negative)
--- NOTE | 2025-01-22 07:20 | WPDHPUPDATE1 ---
History and Physical Update Update Date/Time: 01/22/25 07:20 History and Physical has been reviewed, including an updated exam of the patient. There are NO changes in the patient's condition. Risks, benefits, and alternatives have been discussed and questions answered. Patient agrees to proceed with procedure.
[2025-01-22] MEDS: LACTATED RINGERS 1,000 ML 30 ML IV CONT ×2 (07:22→10:03)
[2025-01-22] MEDS: SCOPOLAMINE 1 MG PATCH 1 PATCH TRANSDERM (07:23)
[2025-01-22] MEDS: ceFAZolin 2 GM/D5W 50 ML 2 GM/50 ML BAG IVPB (07:30)
[2025-01-22] MEDS: BUPivacaine HCL 0.5% 10 ML AMP 20 ML INFILTRATE (08:01)
--- NOTE | 2025-01-22 09:44 | S_PTH ---
PATIENT: Patti Avendano LOC: [facility] U#:[id number] AGE/SX: 44/F ROOM: RE01/22/[address]: Osman Shelby MD : 1980 BED: DIS: 01/22/2025 SPEC #: [id number] RECD: 01/22/25 10:49 STATUS: BELG[place] REQ #: [id number] JINA: 01/22/25 09:[address]: Osman Shelby DEPT: [facility] Surgical RECD BY: Darcie Delgado ENTERED: 01/22/25 10:49 SP TYPE: Surgical OTHR DR: Cora Quiroz APRN Tissues: A - Uterus Procedures: Hematoxylin and Eosin Stain Gross and Microscopic Level 5
--- NOTE | 2025-01-22 10:05 | W.PM.PROC2 ---
Procedure Note - Detailed Date of Procedure 01/22/25 Pre-op Diagnosis menorrhagia, fibroid uterus Post-op Diagnosis Same Procedure Performed robotic assisted laparoscopic total vaginal hysterectomy with bilateral salpingectomy Surgeon Osman Shelby MD Dairy Equipment Mechanic K Anesthesia General Indications menorrhagia and fibroids causing anemia has not responded to prior treatment she has opted for definitive treatment with hysterectomy Findings uterus approximately 12 week size multiple fibroids intramural and subserosal fallopian tubes and ovaries normal fallopian tubes with evidence of prior sterilization Description of Procedure After informed consent was obtained she was taken to the operating room and general endotracheal anesthesia was administered. She was placed in low lithotomy position. An exam under anesthesia was performed. She was and prepped and draped in sterile fashion. Stephenson catheter placed in bladder. Attention was turned to the vagina speculum was inserted. Single-tooth tenaculum placed on anterior lip of the cervix the uterus sounded to 9 cm. The cervix was dilated to a 8 Brown dilator. A size 8 uterine manipulator was inserted and secured. A size 3.0 colp cup was secured in the vagina. Then attention was turned to the abdomen with new sterile gloves. .5% marcaine injected subcutaneously. An incision was made horizontal 2 cm above the umbilicus. a Veress needle was inserted. Confirmation into the abdomen with normal peritoneal pressures. A Pneumoperitoneum of 15 mm per mercury was obtained. The robotic port was inserted under laparoscopic visualization. There were adhesions of the omental tissue to the anterior abdominal wall below the umbilicus. A small incision was made approximately lateral to the port on the left side of the port. 0.5% Marcaine injected subcutaneously. A size 8mm robotic port was inserted under laparoscopic visualization into the abdomen on the left side. Attention was turned to the right side of the abdomen and parallel Marcaine 0.5% was injected and an incision was made and a robotic port was inserted under laparoscopic visualization superior medial to this 0.5% Marcaine injected and an registered nurse first assistant port was inserted under laparoscopic visualization. Attention was turned to the left side and superior and medial to the lateral port an incision was made, 0.5% Marcaine was injected prior to the incision and a Robotic port was inserted under laparoscopic visualization. the robotic arms were attached after patient was placed in steep Trendelenburg position. The vessel sealer was used to ligate the scar tissue from the lower anterior abdominal wall to obtain better visualization of the uterus. Attention was turned to the right round ligament which was ligated. The anterior leaf of the broad ligament was dissected anteriorly. The dense scar tissue at the vesicouterine peritoneum was carefully dissected to where the colp cup was palpated. The right side of the bladder was dissected from the lower uterine segment and upper cervix. The right fallopian tube was ligated from the mesosalpinx. The ovarian ligament was ligated with the vessel sealer. The a posterior leaf of the broad ligament was further dissected. The ascending uterine vessels on the right were cauterized. The uterine vessels were ligated. Attention was turned to the left round ligament which was ligated and the anterior leaf of the broad ligament was dissected anteriorly. The Left side of the bladder was densely adhesed to the uterus. The adhesions were dissected. The left fallopian tube was ligated from the mesosalpinx and the left ovarian ligament was ligated. Uterine vessels were ligated. The remaining of the vesicouterine peritoneum was dissected off of the uterus. the uterine arteries on both sides were ligated and the cardinal ligaments were ligated.The uterine arteries were ligated. The cardinal ligaments were ligated. This was done on both sides. An incision was made anterior colpotomy incision was made and this was carried around until the cervix was from the vagina. The uterus had to be bivalved to allow removal through the vagina. The bivalved uterus and intact cervix were removed through the vagina. The vaginal cuff was closed in a running fashion with 0 V lock suture x c2. Hemostasis was noted. The pelvis was irrigated. Hemostasis noted. Hemoderm was applied in the pelvis. The patient was taken out of Trendelenburg position. The pneumoperitoneum was released and the ports were removed. The skin incisions were closed with 4 O Vicryl and Dermabond. The patient was extubated in operating room. The sponge count was correct x2. Patient tolerated procedure well and was taken to recovery in stable condition. Estimated Blood Loss 50 Urine Output 100 Drains No Packing No Pathology Yes ( bivalve uterus with multiple fibroids and right and left fallopian tube.) Complications No immediate complications Condition Stable Disposition Same day [facility] Billing Surgery - Charge Forward: Surgery Billing
[2025-01-22] MEDS: fentaNYL CITRATE INJ (*CRX) 100 MCG/2 ML VIAL 25 MCG IV PUSH ×3 (10:24→10:38)
[2025-01-22] MEDS: ONDANSETRON INJ 4 MG/2 ML VIAL IV PUSH (11:38)
[2025-01-22] MEDS: oxyBUTYnin CHLORIDE 5 MG TABLET PO (11:38)
[2025-01-22] MEDS: oxyCODONE HCL (*CRX) 5 MG TAB IR PO (11:38)
[2025-01-22] MEDS: MECLIZINE HCL 25 MG TABLET 50 MG PO (11:52)
== END 2025-01-22 14:01 | disposition home or self-care (01) ==
PROVIDERS: PCP Nurse Practitioner; Visit Provider Obstetrics & Gynecology
PROC: (CPT 58554; principal; 2025-01-22 07:30)
DX: D25.1 Intramural leiomyoma of uterus (principal); D25.2 Subserosal leiomyoma of uterus; N73.6 Female pelvic peritoneal adhesions (postinfective); G89.18 Other acute postprocedural pain; K21.9 Gastro-esophageal reflux disease without esophagitis; M79.7 Fibromyalgia; F41.9 Anxiety disorder, unspecified; E55.9 Vitamin D deficiency, unspecified; D50.9 Iron deficiency anemia, unspecified; Z79.85 Long-term (current) use of injectable non-insulin antidiabetic drugs; Z98.890 Other specified postprocedural states; Z98.51 Tubal ligation status; Z82.49 Family history of ischemic heart disease and other diseases of the circulatory system
CPT/HCPCS: 58554; S2900; 88307; A9270; J0690; J1596; J1885; J2003; J2250; J2405; J2704; J2710; J3010; J7030; J7120

== ENCOUNTER 2025-06-04 07:27 | Outpatient (CLI) | payer OTHER, SELFPAY ==
--- NOTE | ~2025-06-04 | MM_ITS ---
EXAMINATION: MM screening fernanda BI w floresita HISTORY: Screening TECHNIQUE: Craniocaudal and mediolateral oblique 3-D tomosynthesis images were obtained and synthetic 2-D images were generated. CAD analysis was submitted and interpreted. COMPARISON: Comparison to multiple prior studies sequentially, with oldest reviewed study dated , 04/27/2020 BREAST PARENCHYMAL COMPOSITION: There are scattered areas of fibroglandular density. FINDINGS: There is no evidence of suspicious mass, calcification, or architectural distortion to suggest malignancy in either breast. IMPRESSION: 1. No mammographic evidence of malignancy. 2. Recommend routine screening mammography in one year. BI-RADS Category 1: Negative Reviewed, dictated and finalized at location B.
== END 2025-06-04 07:28 | disposition home or self-care (01) ==
PROVIDERS: PCP Nurse Practitioner Family; Visit Provider Obstetrics & Gynecology
DX: Z12.31 Encounter for screening mammogram for malignant neoplasm of breast (principal)
CPT/HCPCS: 77063; 77067